=== PATIENT | female | born 1945 | race Caucasian/White ===

== ENCOUNTER 2019-04-05 13:58 | Inpatient (IN) ==
[2019-04-05] MEDS ORDERED: CeFAZolin Syr 2,000MG/20 ML 2,000 MG/20 ML SYRINGE IVPB ONE (14:28)
[2019-04-05] MEDS ORDERED: Ringers Solution, Lactated 1,000 ML IVC SCH ×2 (14:30→18:25)
[2019-04-05] MEDS ORDERED: Acetaminophen IV 1,000 MG/100 ML INFUS..BTL IVPB ONE (14:35)
[2019-04-05] MEDS ORDERED: Famotidine 20 MG/2 ML VIAL IVP ONE (14:35)
[2019-04-05] MEDS ORDERED: Ethanol\\Acetic Acid\\Na Ace\\Ben 1,000 ML IRRIG.SOLN IR ONE (15:29)
[2019-04-05] MEDS ORDERED: Ropivacaine/PF 0.5% 30 ML VIAL ONE ×2 (15:30→15:32)
[2019-04-05] MEDS ORDERED: ROPIVACAINE/PF/NS 0.25% 1 EACH SYRINGE INTRAART ONE ×2 (15:31→15:33)
[2019-04-05] MEDS ORDERED: *HR* Midazolam HCl 2 MG/2 ML VIAL ONE ×2 (15:31→16:24)
[2019-04-05] MEDS ORDERED: *HR* PHENYLEPHRINE 1,000 MCG/10 ML SYRINGE IVP ONE (16:17)
[2019-04-05] MEDS ORDERED: Lidocaine -MPF 2% 2 ML VIAL ONE (16:24)
[2019-04-05] MEDS ORDERED: Lidocaine HCL 4 ML Topical Solution (Laryng-O-Jet Kit Sterile Pak) TP ONE (16:24)
[2019-04-05] MEDS ORDERED: *HR* FentaNYL (PF) 100 MCG/2 ML VIAL ONE ×2 (16:24→16:41)
[2019-04-05] MEDS ORDERED: *HR* Propofol 200 MG/20 ML VIAL IVP ONE (16:24)
[2019-04-05] MEDS ORDERED: Ondansetron 4 MG/2 ML VIAL ONE (16:24)
[2019-04-05] MEDS ORDERED: *HR* HYDROmorphone (PF) 1 MG/ML SYRINGE IVP PRN (17:18)
[2019-04-05] MEDS ORDERED: *HR* OxyCODONE Immed Rel 5 MG TABLET PO PRN ×2 (17:18→18:25)
[2019-04-05] MEDS ORDERED: *HR* Enoxaparin 30 MG/0.3 ML SYRINGE SQ SCH (18:00)
[2019-04-05 18:04] LABS: Hematocrit 37.5 % (35.3-44.9); Hemoglobin 12.5 g/dL (11.5-15.4)
[2019-04-05] MEDS ORDERED: Dextrose Gel 15 GM/37.5 ML TUBE PO PRN ×2 (18:25)
[2019-04-05] MEDS ORDERED: MOM Conc 10 ML UD.LIQ PO PRN (18:25)
[2019-04-05] MEDS ORDERED: Ondansetron 4 MG/2 ML VIAL IVP PRN (18:25)
[2019-04-05] MEDS ORDERED: *HR* Dextrose 50 % in Water (Syg) 50 ML SYRINGE IVP PRN (18:25)
[2019-04-05] MEDS ORDERED: Sennosides 8.6 MG TABLET PO PRN (18:25)
[2019-04-05] MEDS ORDERED: D5% in Water 1,000 ML IVC PRN (18:25)
[2019-04-05] MEDS ORDERED: Naloxone 0.4 MG/ML INJ IVP PRN (18:25)
[2019-04-05] MEDS ORDERED: Temazepam 15 MG CAPSULE PO PRN (21:00)
[2019-04-05] MEDS: Insulin LISPRO 300 UNITS/3 ML VIAL SQ SCH ×2 (22:58→23:01)
[2019-04-05] MEDS: Famotidine 20 MG TABLET PO SCH (22:58)
[2019-04-05] MEDS: Gabapentin 100 MG CAPSULE PO SCH (22:58)
[2019-04-06] MEDS: *HR* OxyCODONE/APAP 5/325 TABLET PO PRN ×2 (01:28→18:17)
[2019-04-06 06:21] LABS: Hematocrit 35.8 % (35.3-44.9); Hemoglobin 11.8 g/dL (11.5-15.4)
[2019-04-06] MEDS: *HR* Enoxaparin 30 MG/0.3 ML SYRINGE SQ SCH ×2 (06:21→18:17)
[2019-04-06 06:44] LABS: BUN/Creatinine Ratio 27 (6-26); Blood Urea Nitrogen 18 mg/dL (8-23); Calcium 8.7 mg/dL (8.6-10.3); Carbon Dioxide 27 mEq/L (23-29); Chloride 101 mEq/L (98-107); Glucose 272 mg/dL (70-105); Osmolality,Calculated 300 (280-300); Potassium 4.5 mEq/L (3.5-5.1); Sodium 139 mEq/L (136-145); eGFR For African Americans > 60 (> 60); eGFR For Non-African Americans > 60 (> 60)
[2019-04-06] MEDS ORDERED: NON-FORMULARY MEDICATION 1 EACH EACH (Linagliptin [Tradjenta] 5 MG) PO SCH (09:00)
[2019-04-06] MEDS: Gabapentin 100 MG CAPSULE PO SCH ×2 (09:21→20:13)
[2019-04-06] MEDS: Furosemide 40 MG TABLET PO SCH (09:21)
[2019-04-06] MEDS: Famotidine 20 MG TABLET PO SCH ×2 (09:21→20:14)
[2019-04-06] MEDS: *HR* Glimepiride 2 MG TABLET PO SCH (09:22)
[2019-04-06] MEDS: Metoprolol XL (24 HR) Succ 25 MG TAB.ER.24H PO SCH (09:22)
[2019-04-06] MEDS: Insulin LISPRO 300 UNITS/3 ML VIAL SQ SCH ×4 (09:25→21:00)
[2019-04-07 05:07] LABS: Hematocrit 34.2 % (35.3-44.9)
[2019-04-07] MEDS: *HR* Enoxaparin 30 MG/0.3 ML SYRINGE SQ SCH ×2 (05:22→18:01)
[2019-04-07] MEDS: *HR* OxyCODONE/APAP 5/325 TABLET PO PRN (05:22)
[2019-04-07 05:32] LABS: BUN/Creatinine Ratio 26 (6-26); Blood Urea Nitrogen 21 mg/dL (8-23); Calcium 8.9 mg/dL (8.6-10.3); Carbon Dioxide 29 mEq/L (23-29); Chloride 103 mEq/L (98-107); Glucose 170 mg/dL (70-105); Osmolality,Calculated 291 (280-300); Sodium 137 mEq/L (136-145); eGFR For African Americans > 60 (> 60); eGFR For Non-African Americans > 60 (> 60)
[2019-04-07] MEDS: Famotidine 20 MG TABLET PO SCH ×2 (08:34→21:43)
[2019-04-07] MEDS: *HR* Glimepiride 2 MG TABLET PO SCH (08:34)
[2019-04-07] MEDS: Metoprolol XL (24 HR) Succ 25 MG TAB.ER.24H PO SCH (08:34)
[2019-04-07] MEDS: Furosemide 40 MG TABLET PO SCH (08:34)
[2019-04-07] MEDS: Gabapentin 100 MG CAPSULE PO SCH ×2 (08:34→21:43)
[2019-04-07] MEDS: Insulin LISPRO 300 UNITS/3 ML VIAL SQ SCH ×4 (08:35→21:40)
[2019-04-07 19:14] LABS: Adenovirus Not Detected (Not Detect); Bordetella Pertussis Not Detected (Not Detect); Chlamydophila pneumoniae Not Detected (Not Detect); Coronavirus 229E Not Detected (Not Detect); Coronavirus HKU1 Not Detected (Not Detect); Coronavirus NL63 Not Detected (Not Detect); Coronavirus OC43 Not Detected (Not Detect); Human Metapneumovirus Not Detected (Not Detect); Human Rhinovirus/Enterovirus Not Detected (Not Detect); Influenza A Subtype 2009 H1 Not Detected (Not Detect); Influenza A Untypeable Not Detected (Not Detect); Influenza B Not Detected (Not Detect); Mycoplasma pneumoniae Not Detected (Not Detect); Parainfluenza Virus 1 Not Detected (Not Detect); Parainfluenza Virus 2 Not Detected (Not Detect); Parainfluenza Virus 3 Not Detected (Not Detect); Parainfluenza Virus 4 Not Detected (Not Detect); Respiratory Syncytial Virus Not Detected (Not Detect)
[2019-04-07 20:07] LABS: Bilirubin,Urine Negative (Negative); Blood,Urine Negative (Negative); Clarity,Urine Cloudy (Clear); Color,Urine Yellow (Yellow); Glucose,Urine (UA) Normal (Normal); Ketones,Urine Negative (Negative); Leukocyte Esterase,Urine Large (Negative); Nitrite,Urine Negative (Negative); PH,Urine 6.5 pH Units (5.0-8.0); Protein,Urine Negative (Neg-Trace); Specific Gravity,Urine 1.017 (1.010-1.025); Urobilinogen,Urine Normal (Normal)
[2019-04-07 20:11] LABS: Bacteria,Urine None Seen per hpf (None-Few); Hyaline Casts,Urine None Seen per lpf (None-Few); Squamous Epithelial Cell,Urine Moderate per lpf (None-Few); WBC,Urine TNTC per hpf (0-3)
[2019-04-08] MEDS: *HR* Enoxaparin 30 MG/0.3 ML SYRINGE SQ SCH ×2 (06:08→18:53)
[2019-04-08] MEDS: Furosemide 40 MG TABLET PO SCH (09:01)
[2019-04-08] MEDS: Insulin LISPRO 300 UNITS/3 ML VIAL SQ SCH ×4 (09:02→20:59)
[2019-04-08] MEDS: Famotidine 20 MG TABLET PO SCH ×2 (09:02→21:11)
[2019-04-08] MEDS: *HR* Glimepiride 2 MG TABLET PO SCH (09:02)
[2019-04-08] MEDS: Gabapentin 100 MG CAPSULE PO SCH ×2 (09:02→21:11)
[2019-04-08] MEDS: Metoprolol XL (24 HR) Succ 25 MG TAB.ER.24H PO SCH (09:02)
[2019-04-08 12:11] LABS: Basophils % 0.5 %; Eosinophils # 0.3 K/mcL (0.0-0.6); Eosinophils % 3.2 %; Hematocrit 34.3 % (35.3-44.9); Hemoglobin 11.5 g/dL (11.5-15.4); Immature Granulocytes % 0.5 % (0-4); Lymphocytes # 1.3 K/mcL (0.6-4.6); Lymphocytes % 16.3 %; Mean Corpuscular HGB Conc 33.5 g/dL (31.6-35.5); Mean Corpuscular Hemoglobin 31.7 pg (28.0-33.3); Mean Corpuscular Volume 94.5 fL (83.0-100.0); Mean Platelet Volume 10.2 fL (9.4-12.4); Monocytes # 1.1 K/mcL (0.0-1.3); Neutrophils # 5.1 K/mcL (1.6-8.9); Platelet Count 170 K/mcL (140-400); Red Blood Count 3.63 M/mcL (3.82-4.97); Red Cell Distribution Width 14.3 % (11.5-14.5); Segmented Neutrophils % 65.5 %; White Blood Count 7.9 K/mcL (4.3-11.1)
[2019-04-08 17:02] LABS: Alanine Aminotransferase 12 Units/L (7-52); Albumin 3.5 g/dL (3.5-5.7); Albumin/Globulin Ratio 1.1 (1.1-2.2); Alkaline Phosphatase 85 Units/L (34-104); Aspartate Amino Transferase 21 Units/L (13-39); BUN/Creatinine Ratio 25 (6-26); Bilirubin,Total 1.4 mg/dL (0.3-1.0); Blood Urea Nitrogen 14 mg/dL (8-23); Calcium 9.1 mg/dL (8.6-10.3); Carbon Dioxide 30 mEq/L (23-29); Chloride 102 mEq/L (98-107); Globulin 3.3 g/dL (2.4-3.5); Glucose 98 mg/dL (70-105); Osmolality,Calculated 288 (280-300); Potassium 3.7 mEq/L (3.5-5.1); Sodium 139 mEq/L (136-145); Total Protein 6.8 g/dL (6.4-8.9); eGFR For African Americans > 60 (> 60); eGFR For Non-African Americans > 60 (> 60)
[2019-04-08] MEDS ORDERED: Isovue-370 500 ML BOTTLE IVP ONE (17:28)
[2019-04-09] MEDS ORDERED: levoFLOXacin 750 MG/150 ML 750 MG/150 ML BAG IVPB SCH (04:16)
[2019-04-09 04:30] LABS: Hematocrit 33.5 % (35.3-44.9); Hemoglobin 11.2 g/dL (11.5-15.4); Mean Corpuscular HGB Conc 33.4 g/dL (31.6-35.5); Mean Corpuscular Hemoglobin 31.5 pg (28.0-33.3); Mean Corpuscular Volume 94.1 fL (83.0-100.0); Mean Platelet Volume 10.1 fL (9.4-12.4); Platelet Count 165 K/mcL (140-400); Red Blood Count 3.56 M/mcL (3.82-4.97); Red Cell Distribution Width 14.2 % (11.5-14.5); White Blood Count 7.4 K/mcL (4.3-11.1)
[2019-04-09 04:53] LABS: Albumin 3.2 g/dL (3.5-5.7); BUN/Creatinine Ratio 31 (6-26); Bilirubin,Direct 0.4 mg/dL (0.0-0.2); Bilirubin,Total 1.4 mg/dL (0.3-1.0); Blood Urea Nitrogen 15 mg/dL (8-23); Calcium 8.7 mg/dL (8.6-10.3); Carbon Dioxide 27 mEq/L (23-29); Chloride 104 mEq/L (98-107); Globulin 3.1 g/dL (2.4-3.5); Glucose 108 mg/dL (70-105); Osmolality,Calculated 289 (280-300); Potassium 3.3 mEq/L (3.5-5.1); Sodium 139 mEq/L (136-145); Total Protein 6.3 g/dL (6.4-8.9); eGFR For African Americans > 60 (> 60); eGFR For Non-African Americans > 60 (> 60)
[2019-04-09] MEDS: *HR* Enoxaparin 30 MG/0.3 ML SYRINGE SQ SCH (05:05)
[2019-04-09 06:58] VITALS: BP 103/66
[2019-04-09] MEDS ORDERED: cefTRIAXone 2,000 MG in Water for inj. (sterile) 20 ML IVP SCH (08:00)
[2019-04-09] MEDS: *HR* Glimepiride 2 MG TABLET PO SCH (08:55)
[2019-04-09] MEDS: Furosemide 40 MG TABLET PO SCH (08:55)
[2019-04-09] MEDS: Insulin LISPRO 300 UNITS/3 ML VIAL SQ SCH (08:56)
[2019-04-09] MEDS: Famotidine 20 MG TABLET PO SCH (08:56)
[2019-04-09] MEDS: Gabapentin 100 MG CAPSULE PO SCH (08:56)
[2019-04-09] MEDS: Metoprolol XL (24 HR) Succ 25 MG TAB.ER.24H PO SCH (09:04)
== END 2019-04-09 12:15 | DRG 483 ==
LOC: SAMDAY 13:58 → 3NENU 14:52
PROVIDERS: ADMIT Orthopaedic Surgery; ATTEND Orthopaedic Surgery